=== PATIENT | female | born 1935 | race Caucasian/White ===

== ENCOUNTER → 2024-02-12 13:40 | Outpatient (REF) | payer OTHER, SELFPAY | LOC: DHCBS MAIN 13:40 | PROVIDERS: ATTENDING PHYSICIAN Internal Medicine Cardiovascular Disease; FAMILY PHYSICIAN Family Medicine | DX: Z86.79 Personal history of other diseases of the circulatory system (principal) | CPT/HCPCS: 93306 ==

== ENCOUNTER 2025-11-03 12:25 | Day surgery (SDC) | payer OTHER, SELFPAY ==
[2025-10-25 11:57] VITALS: BMI 27.4
[2025-10-25 12:30] LABS: Hematocrit 41.0 % (37.0-47.0); Hemoglobin 13.6 g/dL (12.0-16.0); Mean Corp Hgb Conc. 33.2 g/dL (33.0-37.0); Mean Corpuscular Volume 93.6 fL (81.0-99.0); Nucleated Red Blood Cells % 0 %; Platelet Count 282 10^3/uL (130-400); Red Cell Dist. Width 14.3 % (11.5-14.5)
[2025-10-25 12:50] LABS: ALT (SGPT) 23 U/L (0-35); AST (SGOT) 30 U/L (14-36); Albumin 4.3 g/dl (3.5-5.0); Alkaline Phosphatase 64 U/L (38-126); Blood Urea Nitrogen 32 mg/dl (7-17); Calcium 10.0 mg/dl (8.4-10.2); Carbon Dioxide 39 mmol/L (22-30); Chloride 97 mmol/L (98-107); Estimated Creatinine Clearance 38 ml/min; Glucose 100 mg/dl (70-99); Magnesium 2.1 mg/dl (1.6-2.3); Potassium 4.7 mmol/L (3.5-5.1); Sodium 138 mmol/L (135-145); Total Protein 7.4 g/dl (6.3-8.2); eGFR > 60.00
--- NOTE | 2025-11-03 09:34 | W.ICD.CONTRA ---
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
-
History of MN?: No
LV Function
Left ventricular function study result?: Ejection Fraction >/= 40%
ACEI/ARB/ARNI
Patient already on ACEI/ARB/ARNI: No
ACEI/ARB/ARNI Not Indicated: Left Ventricular EF >/= 40%
Beta-Inocente
Patient already on Beta Inocente: Yes
[2025-11-03 14:00] VITALS: BP 205/77
--- NOTE | 2025-11-03 17:27 | ITS.CL.ICD ---
Housing Liaison - ICD
Implantable Cardioverter Defibrillator
Procedure Report:
Primary Animal Trapper: Dr Erinn Crawford
Procedure Date: 11/03/2025
Name of procedure:
1. Device Revision: Biventricular Pacing ICD
2. Pulse Generator Change
3. Defibrillator Pocket Revision
History:
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
Methods:
After informed consent was obtained, the patient was brought to the EP laboratory in a postabsorptive, nonsedated state. Peripheral IV access was established. Prophylactic antibiotics were administered prior to incision. Continues ECG, blood
pressure, and pulse oximetry were initiated. Cardioversion patch electrodes were placed on the patient's chest and back. A grounding patch was applied to the skin. A 'time out' was called and confirmed. Sedation was administered by the Anesthesia
service.
The left chest was prepared and draped in a sterile fashion. Local anesthesia was injected in the subcutaneous tissue in the infraclavicular area. An incision was made into the chronic scar. With cautious attention to the leads, the subcutaneous
tissue was dissected the level of the device capsule. The capsule was opened, the device was explanted and disconnected from the leads. The leads were inspected and found to be free of visible defect. The leads were tested and found to have
adequate pacing and sensing parameters, consistent with pre-procedure measurements.
The pocket was revised to accommodate the new device. The pocket was flushed with antibiotic solution and hemostasis was assured. The generator was connected to the leads and placed inside the pocket. The wound was closed with 3 running layers of
absorbable suture and Steri-strips were applied to the skin. Dressing was applied in the typical fashion.
Following the procedure, the patient was taken to the recovery area in stable condition. No complications were noted.
Lead parameters and device programming:
- RA Lead ([employer], Model: 5076, Serial# [id number]): Sensing 1.4 mV, Pacing threshold 0.75 V at 0.4 ms, Imp 495 ohm
- RV Lead (Medtronic, Model: 6935 M62, Serial# [id number]): Sensing 20.0 mV, Pacing threshold 1.0 V at 0.4 ms, Imp 475 ohm; Shock Impedance: 81 ohm
- LV Lead ([employer]tronic, Model: 4298, Serial# [id number]): Sensing --, Pacing threshold 2.25 V at 0.5 ms, Imp 1190 ohm
- Device: Medtronic DRY WALL SPRAYER-D (Model: [id number], Serial# [id number]), programmed DDDR, mode switch on, lower rate 50, upper tracking rate 130 ppm
- Zones: Monitor 150�188; VF zone 188 and above
Explanted device: Medtronic model: [id number], Serial# [id number]
Conclusions:
1. Successful biventricular pacing defibrillator revision
2. Pulse generator change, DRY WALL SPRAYER-D
3. Normal function of ICD and lead at implant testing.
Recommendations:
1. Discharge home when stable
2. Follow-up will be arranged in our office 7-10 days post-discharge for wound check and in office as scheduled
Dougie Freedman DO, FACC, RS
Copy to: Dr Erinn Crawford
--- NOTE | 2025-11-03 19:25 | PTCARENOTE ---
Petechiae and bruising noted where defib pad was removed. Patient states no pain.
--- NOTE | 2025-11-03 19:28 | PTCARENOTE ---
Patient SOB when ambulating to bathroom. Suggested to take home lasix dose since she has missed this morning. Patient aware but declined. o2 91% RA
== END 2025-11-03 18:47 | disposition home or self-care (01) ==
LOC: CATH 12:25
PROVIDERS: ATTENDING PHYSICIAN Internal Medicine Cardiovascular Disease; FAMILY PHYSICIAN Family Medicine; OTHER PHYSICIAN Internal Medicine Cardiovascular Disease
DX: Z45.02 Encounter for adjustment and management of automatic implantable cardiac defibrillator (principal); I11.0 Hypertensive heart disease with heart failure; I50.22 Chronic systolic (congestive) heart failure; E78.5 Hyperlipidemia, unspecified; H40.9 Unspecified glaucoma; E03.9 Hypothyroidism, unspecified; E22.2 Syndrome of inappropriate secretion of antidiuretic hormone; I05.9 Rheumatic mitral valve disease, unspecified; I42.8 Other cardiomyopathies; J43.9 Emphysema, unspecified; M19.90 Unspecified osteoarthritis, unspecified site; M81.0 Age-related osteoporosis without current pathological fracture; Z79.899 Other long term (current) drug therapy; Z79.890 Hormone replacement therapy; I44.7 Left bundle-branch block, unspecified; Z86.73 Personal history of transient ischemic attack (TIA), and cerebral infarction without residual deficits; Z88.2 Allergy status to sulfonamides; Z88.8 Allergy status to other drugs, medicaments and biological substances; Z90.10 Acquired absence of unspecified breast and nipple; Z90.49 Acquired absence of other specified parts of digestive tract; Z91.048 Other nonmedicinal substance allergy status
CPT/HCPCS: 33264; 36415; 80053; 83735; 85025; 93005; C1882

== ENCOUNTER → 2025-11-05 10:48 | Outpatient (REF) | payer OTHER, SELFPAY ==
[2025-11-05 11:46] LABS: HDL Cholesterol 92 mg/dl; LDL Cholesterol, Calculated 87 mg/dl; Very Low Density Lipoprotein 10 mg/dl (0-30)
== END ==
LOC: OLABLV 10:48
PROVIDERS: ATTENDING PHYSICIAN Family Medicine
DX: E78.5 Hyperlipidemia, unspecified (principal)
CPT/HCPCS: 36415; 80061

== ENCOUNTER → 2025-11-17 11:54 | Outpatient (REF) | payer OTHER, SELFPAY ==
[2025-11-17 12:07] LABS: Hematocrit 38.2 % (37.0-47.0); Hemoglobin 12.5 g/dL (12.0-16.0); Mean Corp Hgb Conc. 32.7 g/dL (33.0-37.0); Mean Corpuscular Volume 97.2 fL (81.0-99.0); Nucleated Red Blood Cells % 0 %; Platelet Count 283 10^3/uL (130-400); Red Cell Dist. Width 14.1 % (11.5-14.5)
[2025-11-17 12:35] LABS: Blood Urea Nitrogen 30 mg/dl (7-17); Calcium 9.2 mg/dl (8.4-10.2); Carbon Dioxide 32 mmol/L (22-30); Chloride 102 mmol/L (98-107); Glucose 83 mg/dl (70-99); Magnesium 2.0 mg/dl (1.6-2.3); Potassium 4.6 mmol/L (3.5-5.1); Sodium 137 mmol/L (135-145); eGFR > 60.00
== END ==
LOC: OLABLV 11:54
PROVIDERS: ATTENDING PHYSICIAN Family Medicine
DX: R06.02 Shortness of breath (principal); I10 Essential (primary) hypertension; I42.0 Dilated cardiomyopathy; E87.1 Hypo-osmolality and hyponatremia
CPT/HCPCS: 36415; 80048; 83735; 83880; 85025

== ENCOUNTER → 2025-11-18 16:03 | Outpatient (REF) | payer OTHER, SELFPAY | LOC: RAD 16:03 | PROVIDERS: ATTENDING PHYSICIAN Internal Medicine Cardiovascular Disease | DX: I10 Essential (primary) hypertension (principal); R06.02 Shortness of breath | CPT/HCPCS: 71046 ==